=== PATIENT | female | born 2005 | race African-American/Black ===

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

== ENCOUNTER 2024-05-27 17:48 | Emergency (ER) | payer OTHER ==
[~2024-05-27] VITALS: Ht 167.6 cm; Wt 63.6 kg
[~2024-05-27 17:48] MED LIST: KEPPRA 500MG500 MG PO; MACROBID 1100 MG/CAP PO; NAPROSYN500 MG PO
[2024-05-27 17:53] VITALS: TEMP 98.7
[2024-05-27] MEDS ORDERED: BACTRIM DS 8001 TAB PO (18:24)
[2024-05-27] MEDS ORDERED: Sulfamethoxazole/Trimethoprim 800-160 MG TAB PO ONE (18:30)
[2024-05-27 18:40] VITALS: BP 115/79; PULSE 81
== END 2024-05-27 18:40 | disposition home or self-care (01) ==
LOC: COL.ER 17:48
DX: L73.9 Follicular disorder, unspecified (principal); Z88.0 Allergy status to penicillin; Z88.1 Allergy status to other antibiotic agents